=== PATIENT | male | born 1935 | race Two or more races ===

== ENCOUNTER 2020-07-11 15:33 | Inpatient (IN) | payer OTHER ==
[~2020-07-11] VITALS: Ht 160 cm; Wt 96.0 kg
[2020-07-11 16:30] LABS: Basophils # (auto) 0 10 ^3/uL (0-0.2); Basophils % (auto) 0.4 % (0.0-2.0); Eosinophils # (auto) 0 10 ^3/uL (0-0.8); Hematocrit 30.9 % (41.0-53.0); Hemoglobin 10.3 g/dL (13.5-17.5); Lymphocytes # (auto) 0.5 10 ^3/uL (0.4-5.4); Lymphocytes % (auto) 5.9 % (10.0-50.0); Mean Corpuscular Hemoglobin 30.6 pg (28.0-32.0); Mean Corpuscular Hgb Conc. 33.2 g/dL (32.0-36.0); Mean Corpuscular Volume 92.2 fL (80.0-100.0); Monocytes # (auto) 0.2 10 ^3/uL (0-1.3); Monocytes % (auto) 2.4 % (0.0-12.0); Neutrophils # (auto) 7.3 10 ^3/uL (1.6-8.6); Neutrophils % (auto) 91.3 % (37.0-80.0); Nucleated Red Blood Cells % 0.1 %; Platelet Count (auto) 401 10^3/uL (140-450); Red Blood Cells 3.36 10^6/uL (4.5-5.90); Red Cell Distribution Width 12.4 % (11.8-14.3)
[2020-07-11 16:58] LABS: Albumin 2.8 g/dL (3.4-5.0); Calcium 7.6 mg/dL (8.5-10.1); Magnesium 2.3 mg/dL (1.6-2.6)
[2020-07-11 17:04] LABS: BUN/Creatinine Ratio 12.8; Bilirubin, Total 0.4 mg/dL (0.2-1.0); Total Protein 6.9 g/dL (6.4-8.2)
[2020-07-11 17:33] LABS: Potassium 5.9 mmol/L (3.5-5.1)
[2020-07-11] MEDS ORDERED: CALCIUM GLUC 4.65meq/50ml D5AE 50 ML IV ONE (20:15)
[2020-07-11] MEDS ORDERED: SODIUM BICARBONATE 8.4 % INJ 50ML VIAL IV ONE ×3 (20:15→23:48)
[2020-07-11] MEDS ORDERED: InsuLIN REG 1unit/0.01ml Soln (100units/ml) IV ONE (20:15)
[2020-07-11] MEDS ORDERED: DEXTROSE (25%) 10 ML SYRG IV ONE (20:15)
[2020-07-11] MEDS ORDERED: NOREPINEPHRINE 8 MG/250ML KIT 250 ML IV ONE (20:49)
[2020-07-11] MEDS: NOREPINEPHRINE 8 MG/250ML KIT 250 ML IV SCH (21:00)
[2020-07-11] MEDS ORDERED: ETOMIDATE (2MG/ML) 20ML VIAL IV ONE (21:04)
[2020-07-11] MEDS ORDERED: MIDAZOLAM DRIP 50 mg/50mL 50 ML IV ONE (21:04)
[2020-07-11] MEDS ORDERED: SUCCINYLCHOLINE CHLORIDE 20 MG/ML 10ML VIAL IV ONE (21:04)
[2020-07-11 21:30] VITALS: BP 98/32
[2020-07-11] MEDS ORDERED: SODIUM CHLORIDE 0.9% 1,000 ML IV ONE (21:45)
[2020-07-11] MEDS: fentaNYL Drip 2500mCg/250mlNS 250 ML IV SCH (21:45)
[2020-07-11] MEDS ORDERED: MIDAZOLAM HCL 5 MG/ML-1ML VIAL IV ONE (22:00)
[2020-07-11 23:00] VITALS: BP 104/30
[2020-07-11] MEDS ORDERED: SODIUM BICARBONATE 50ML VIAL 150 ML in D5W 5% 1,000 ML IV ONE (23:30)
[2020-07-11 23:31] LABS: Calcium 8.3 mg/dL (8.5-10.1)
[2020-07-11 23:34] LABS: BUN/Creatinine Ratio 13.5
[2020-07-11 23:37] LABS: Potassium 5.7 mmol/L (3.5-5.1)
[2020-07-12] MEDS ORDERED: NITROGLYCERIN 0.4 MG SL TAB SL PRN (02:00)
[2020-07-12] MEDS ORDERED: MORPHINE SULF INJ 2 MG/ML SYRINGE 1ML IV PRN (02:00)
[2020-07-12] MEDS ORDERED: ONDANSETRON HCL 4 MG/2 ML VIAL IV PRN (02:00)
[2020-07-12] MEDS ORDERED: DEXTROSE (50%) 50ML SYRG IV PRN (02:00)
[2020-07-12] MEDS ORDERED: MORPHINE SULFATE 4 MG/ML SYR/VIAL IV PRN (02:00)
[2020-07-12] MEDS: ACCU-CHEK COMFORT CURVE STRIP VI SCH ×3 (06:00→17:06)
[2020-07-12] MEDS: InsuLIN REG 1unit/0.01ml Soln (100units/ml) SC SCH ×3 (06:00→17:07)
[2020-07-12] MEDS ORDERED: HEPARIN SODIUM (PORCINE) 5000 UNITS/ML 1ML VIAL IV SCH (06:00)
[2020-07-12 06:33] VITALS: BP 138/51
[2020-07-12] MEDS: PANTOPRAZOLE 40 MG/10 ML VIAL INJ IV SCH (08:46)
[2020-07-12] MEDS ORDERED: SODIUM BICARBONATE 8.4 % INJ 50ML VIAL IV STA (09:22)
[2020-07-12 10:15] LABS: Hematocrit 25.9 % (41.0-53.0); Hemoglobin 9.1 g/dL (13.5-17.5); Mean Corpuscular Hemoglobin 30.9 pg (28.0-32.0); Mean Corpuscular Volume 88.3 fL (80.0-100.0); Platelet Count (auto) 320 10^3/uL (140-450); Red Blood Cells 2.93 10^6/uL (4.5-5.90); Red Cell Distribution Width 12.4 % (11.8-14.3); White Blood Cell 9.6 10^3/uL (4.4-10.8)
[2020-07-12 10:20] LABS: Basophils % (manual) 0 (0.0-2.0); Blast Cells 0; Eosinophils % (manual) 0 (0-7); Promyelocytes % 0; Reactive Lymphocytes 0
[2020-07-12 10:58] LABS: Albumin 1.9 g/dL (3.4-5.0)
[2020-07-12 11:00] LABS: Band Neutrophils % (manual) 6; Lymphocytes % (manual) 15 (10.0-50.0); Metamyelocytes % 2; Monocytes % (manual) 7 (0-12); Myelocytes % 1
[2020-07-12 11:02] LABS: Bilirubin, Total 0.4 mg/dL (0.2-1.0); Total Protein 4.6 g/dL (6.4-8.2)
[2020-07-12 11:12] LABS: Potassium 5.8 mmol/L (3.5-5.1)
[2020-07-12] MEDS ORDERED: DEXTROSE (50%) 50ML SYRG IV ONE (11:45)
[2020-07-12] MEDS ORDERED: InsuLIN REG 1unit/0.01ml Soln (100units/ml) IV ONE (11:45)
[2020-07-12] MEDS ORDERED: SODIUM ZIRCONIUM CYCL 10 GM PAK PO ONE (11:45)
[2020-07-12] MEDS ORDERED: CALCIUM GLUC 4.65meq/50ml D5AE 50 ML IV ONE (12:00)
[2020-07-12] MEDS ORDERED: VASOPRESSIN 50 UNITS in D5W 5% 247.5 ML IV SCH (12:00)
[2020-07-12] MEDS ORDERED: VASOPRESSIN 20 UNIT/ML ONE (12:02)
[2020-07-12] MEDS: SODIUM BICARBONATE 50ML VIAL 150 ML in D5W 5% 1,000 ML IV SCH ×3 (12:03→21:52)
[2020-07-12] MEDS: VASOPRESSIN 50 UNITS in D5W 5% 247.5 ML IV SCH (12:32)
[2020-07-12] MEDS ORDERED: SODIUM BICARBONATE 8.4% INJ 50ML SYRINGE IV ONE (13:37)
[2020-07-12] MEDS ORDERED: EPINEPHrine HCL 1 MG/10 ML SYRG IV ONE (13:37)
[2020-07-12] MEDS ORDERED: CALCIUM CHLOR(10%) 100MG/ML 10ML SYRINGE IV ONE (13:37)
[2020-07-12] MEDS: NOREPINEPHRINE 8 MG/250ML KIT 250 ML IV SCH ×2 (13:45→17:22)
[2020-07-12] MEDS: HEPARIN SODIUM (PORCINE) 5000 UNITS/ML 1ML VIAL SC SCH ×2 (13:46→23:00)
[2020-07-12 14:21] VITALS: BP 117/45
[2020-07-12] MEDS ORDERED: BUMETANIDE 2.5mg/10ml (0.25 mg/ml) INJ IV ONE (14:45)
[2020-07-12] MEDS: SODIUM ZIRCONIUM CYCL 10 GM PAK GT SCH ×2 (15:17→23:00)
[2020-07-12] MEDS ORDERED: FUROSEMIDE 40 MG/4 ML VIAL IV ONE (17:00)
[2020-07-12 18:21] LABS: Urine Bacteria FEW /hpf (None Seen); Urine Blood 3+ /uL (Negative); Urine Hyaline Cast FEW /lpf (0 - 2); Urine Mucus FEW (None Seen); Urine Specific Gravity 1.013 (1.001-1.035); Urine WBC 75 /hpf (0 - 3)
[2020-07-12 18:45] VITALS: BP 84/33
[2020-07-12 19:52] LABS: BUN/Creatinine Ratio 14.6; Calcium 6.9 mg/dL (8.5-10.1); Potassium 5.2 mmol/L (3.5-5.1)
[2020-07-12] MEDS: fentaNYL Drip 2500mCg/250mlNS 250 ML IV SCH (21:45)
[2020-07-12 22:04] VITALS: BP 88/35
[2020-07-12] MEDS ORDERED: SODIUM CHLORIDE 0.9% 1,000 ML IV ONE (22:45)
[2020-07-12] MEDS: PHENYLEPHRINE IV 250 ML IV SCH (23:54)
[2020-07-13] VITALS (47 sets, daily range): BP systolic 64–116; BP diastolic 30–55
[2020-07-13] MEDS: ACCU-CHEK COMFORT CURVE STRIP VI SCH ×4 (00:20→18:00)
[2020-07-13] MEDS: InsuLIN REG 1unit/0.01ml Soln (100units/ml) SC SCH ×4 (00:25→18:00)
[2020-07-13] MEDS ORDERED: VASOPRESSIN 20 UNIT/ML ONE (01:44)
[2020-07-13] MEDS ORDERED: DOPamine 1600MCG/ML D5W 250 ML IV ONE (05:14)
[2020-07-13] MEDS ORDERED: DOPamine 1600MCG/ML D5W 250 ML IV SCH (05:15)
[2020-07-13] MEDS: PHENYLEPHRINE IV 250 ML IV SCH (05:35)
[2020-07-13] MEDS: HEPARIN SODIUM (PORCINE) 5000 UNITS/ML 1ML VIAL SC SCH ×3 (05:44→22:00)
[2020-07-13] MEDS: SODIUM ZIRCONIUM CYCL 10 GM PAK GT SCH ×3 (05:59→22:00)
[2020-07-13 07:09] LABS: Hematocrit 30.4 % (41.0-53.0); Hemoglobin 10.1 g/dL (13.5-17.5); Mean Corpuscular Hemoglobin 29.9 pg (28.0-32.0); Mean Corpuscular Hgb Conc. 33.2 g/dL (32.0-36.0); Mean Corpuscular Volume 89.9 fL (80.0-100.0); Platelet Count (auto) 368 10^3/uL (140-450); Red Blood Cells 3.38 10^6/uL (4.5-5.90); Red Cell Distribution Width 12.9 % (11.8-14.3); White Blood Cell 5.7 10^3/uL (4.4-10.8)
[2020-07-13 07:18] LABS: Basophils % (manual) 0 (0.0-2.0); Blast Cells 0; Eosinophils % (manual) 0 (0-7); Promyelocytes % 0; Reactive Lymphocytes 0
[2020-07-13 07:25] LABS: BUN/Creatinine Ratio 14.1; Calcium 6.5 mg/dL (8.5-10.1); Potassium 4.7 mmol/L (3.5-5.1)
[2020-07-13 07:27] LABS: Bilirubin, Total 0.3 mg/dL (0.2-1.0); Total Protein 4.7 g/dL (6.4-8.2)
[2020-07-13] MEDS: PHENYLEPHRINE INJ 40 MG in SODIUM CHL 0.9% 246 ML IV SCH ×2 (08:00→17:53)
[2020-07-13 08:20] LABS: Band Neutrophils % (manual) 17; Lymphocytes % (manual) 8 (10.0-50.0); Metamyelocytes % 1; Monocytes % (manual) 7 (0-12); Myelocytes % 2
[2020-07-13] MEDS: SODIUM BICARBONATE 50ML VIAL 150 ML in D5W 5% 1,000 ML IV SCH ×2 (09:49→16:10)
[2020-07-13] MEDS: PANTOPRAZOLE 40 MG/10 ML VIAL INJ IV SCH (12:25)
[2020-07-13] MEDS: BUMETANIDE 2.5mg/10ml (0.25 mg/ml) INJ IV SCH ×2 (12:26→17:46)
[2020-07-13] MEDS: VASOPRESSIN 50 UNITS in D5W 5% 247.5 ML IV SCH (12:49)
[2020-07-13] MEDS ORDERED: NOREPINEPHRINE BITARTRATE 16 MG in SODIUM CHL 0.9% 234 ML IV SCH (15:15)
[2020-07-13] MEDS ORDERED: PHENYLEPHRINE IV 250 ML IV ONE (16:03)
[2020-07-13] MEDS ORDERED: EPINEPHrine HCL 250 ML IV ONE (17:23)
[2020-07-13] MEDS ORDERED: EPINEPHrine HCL 250 ML IV SCH (18:00)
[2020-07-14] VITALS (9 sets, daily range): BP systolic 63–118; BP diastolic 28–46
[2020-07-14] MEDS ORDERED: DOPamine 1600MCG/ML D5W 250 ML IV ONE (05:32)
[2020-07-14] MEDS: HEPARIN SODIUM (PORCINE) 5000 UNITS/ML 1ML VIAL SC SCH (06:00)
[2020-07-14] MEDS: BUMETANIDE 2.5mg/10ml (0.25 mg/ml) INJ IV SCH (06:00)
[2020-07-14] MEDS: ACCU-CHEK COMFORT CURVE STRIP VI SCH ×3 (06:00→13:08)
[2020-07-14] MEDS: SODIUM ZIRCONIUM CYCL 10 GM PAK GT SCH (06:00)
[2020-07-14] MEDS: InsuLIN REG 1unit/0.01ml Soln (100units/ml) SC SCH ×2 (06:00)
[2020-07-14] MEDS: SODIUM BICARBONATE 50ML VIAL 150 ML in D5W 5% 1,000 ML IV SCH (07:30)
[2020-07-14 09:05] LABS: Anion Gap 46 (5-15); BUN/Creatinine Ratio 13.7; Calcium 6.2 mg/dL (8.5-10.1); Chloride 74 mmol/L (98-107); GFR African American 11 mL/min; GFR Non-African American 9 mL/min; Glucose 94 mg/dL (74-106); Sodium 125 mmol/L (136-145)
[2020-07-14 09:12] LABS: Blood Urea Nitrogen 87 mg/dL (7-18); Carbon Dioxide 5 mmol/L (21-32); Potassium 6.6 mmol/L (3.5-5.1)
[2020-07-14] MEDS ORDERED: SODIUM BICARBONATE 8.4% INJ 50ML SYRINGE ONE (11:21)
[2020-07-14] MEDS: PANTOPRAZOLE 40 MG/10 ML VIAL INJ IV SCH (11:27)
== END 2020-07-14 14:40 | DRG 208 ==
LOC: ER 15:36 → TELE 15:37 → ICU WEST 07-13 08:53
PROVIDERS: ADMIT Nurse Practitioner; ATTEND Hospitalist
PROC: 5A12012 Performance of Cardiac Output, Single, Manual (ICD-10-PCS; principal; 2020-07-11)
PROC: 5A1945Z Respiratory Ventilation, 24-96 Consecutive Hours (ICD-10-PCS; 2020-07-11)
PROC: 0BH17EZ Insertion of Endotracheal Airway into Trachea, Via Natural or Artificial Opening (ICD-10-PCS; 2020-07-11)
PROC: 06HY33Z Insertion of Infusion Device into Lower Vein, Percutaneous Approach (ICD-10-PCS; 2020-07-12)
DX: J96.00 Acute respiratory failure, unspecified whether with hypoxia or hypercapnia (principal); G93.41 Metabolic encephalopathy; A41.9 Sepsis, unspecified organism; N18.6 End stage renal disease; R65.21 Severe sepsis with septic shock; E87.2 Acidosis; E87.1 Hypo-osmolality and hyponatremia; N17.9 Acute kidney failure, unspecified; G93.1 Anoxic brain damage, not elsewhere classified; I46.9 Cardiac arrest, cause unspecified; Z66 Do not resuscitate; Z51.5 Encounter for palliative care; Z20.822 Contact with and (suspected) exposure to COVID-19; E86.0 Dehydration; C14.0 Malignant neoplasm of pharynx, unspecified; E11.22 Type 2 diabetes mellitus with diabetic chronic kidney disease; E66.9 Obesity, unspecified; E87.5 Hyperkalemia; E83.51 Hypocalcemia; Z74.01 Bed confinement status; Z79.899 Other long term (current) drug therapy; E11.65 Type 2 diabetes mellitus with hyperglycemia; Z92.21 Personal history of antineoplastic chemotherapy; Z68.30 Body mass index [BMI] 30.0-30.9, adult
CPT/HCPCS: 31500; 36415; 36600; 51702; 70450; 71045; 71250; 74176; 80048; 80053; 81001; 82805; 82962; 83735; 83880; 84295; 84484; 85007; 85025; 85027; 87070; 87077; 87081; 87186; 87205; 87426; 92950; 93005; 93306; 93886; 94002; 94003; 96365; 96375; C9113; G0378; J0171; J0330; J0610; J1815; J2250; J7060